=== PATIENT | female | born 1935 | race Caucasian/White ===

== ENCOUNTER 2020-08-26 12:03 | Inpatient (IN) | payer MEDICARE ==
[~2020-08-26] VITALS: Ht 165.1 cm; Wt 56.5 kg
--- NOTE | 2020-08-26 12:48 | NUR ---
PIV PLACED, LABS DRAWN AND COLLECTED BY ROUGH ROUNDER. XRAY AT BEDSIDE. SEIZURE PRECAUTIONS IN PLACE. FAMILY AT BEDSIDE.
[2020-08-26 12:55] LABS: BASOPHILS % (AUTO) 0 % (0-1); EOSINOPHILS % (AUTO) 0 % (1-7); LYMPHOCYTES % (AUTO) 5 % (22-44); MEAN CORPUSCULAR HEMOGLOBIN 31.9 pg (27.0-34.8); MEAN CORPUSCULAR HGB CONC 35.2 g/dL (32.4-35.8); MEAN PLATELET VOLUME 7.7 fL (7.4-10.4); MONOCYTES % (AUTO) 5 % (2-9); NEUTROPHILS % (AUTO) 90 % (42-75); PLATELET COUNT 293 x10^3/uL (130-400); RED BLOOD COUNT 3.88 x10^6/uL (3.82-5.3); RED CELL DISTRIBUTION WIDTH 14.1 % (9.6-15.2)
[2020-08-26 12:57] LABS: MD NO
[2020-08-26] MEDS ORDERED: SODIUM CHLORIDE FLUSH 10ML SYR IVF ONE (13:00)
[2020-08-26 13:06] LABS: ALANINE AMINOTRANSFERASE 22 U/L (12-78); ALBUMIN 4.1 g/dL (3.4-5.0); ANION GAP 10 mmol/L (5-15); CALCIUM 8.9 mg/dL (8.5-10.1); CHLORIDE 77 mmol/L (98-107); CREATININE 0.96 mg/dL (0.55-1.02)
[2020-08-26] MEDS ORDERED: LISI-170 PO (13:11)
[2020-08-26] MEDS ORDERED: ATOR20TA37 PO (13:11)
[2020-08-26] MEDS ORDERED: MIRT7.5T8 PO (13:11)
--- NOTE | 2020-08-26 13:14 | NUR ---
URINE COLLECTED VIA STRAIGHT CATH. UA COLLECTED AND TAKEN TO LAB.
[2020-08-26 13:16] LABS: ACETONE, SERUM Negative (Negative); ALKALINE PHOSPHATASE 52 U/L (45-117); BILIRUBIN,TOTAL 0.9 mg/dL (0.2-1.0); TOTAL PROTEIN 7.9 g/dL (6.4-8.2); TROPONIN I < 0.015 ng/mL (0.000-0.045)
[2020-08-26 13:34] LABS: MICROSCOPIC INDICATED
[2020-08-26] MEDS ORDERED: SODIUM CHLORIDE 3% 500 ML IV ONE ×2 (13:41→14:30)
--- NOTE | 2020-08-26 13:50 | NUR ---
PT GOING TO CT.
[2020-08-26] MEDS ORDERED: CEFTRIAXONE PMX 1GM/50ML 50 ML IV ONE (14:00)
[2020-08-26] MEDS ORDERED: SODIUM CHLORIDE FLUSH 10ML SYR IVF PRN (14:00)
[2020-08-26] MEDS ORDERED: POTASSIUM CHLORIDE 20 MEQ TAB.ER.PRT PO ONE (14:00)
--- NOTE | 2020-08-26 14:17 | NUR ---
3% NS REQUESTED FROM PHARMACY.
[2020-08-26] MEDS ORDERED: POTASSIUM CHLORIDE 20 MEQ TAB.ER.PRT ONE (14:24)
[2020-08-26] MEDS ORDERED: CEFTRIAXONE PMX 1GM/50ML 50 ML ONE (14:24)
--- NOTE | 2020-08-26 14:31 | NUR ---
MEDS ADMIN PER AUG. PT TOLERATED SWALLOWING POTASSIUM PILLS WELL.
--- NOTE | 2020-08-26 14:41 | NUR ---
REPORT GIVEN TO ORIN RN. PT RTG TO ROOM 551-2. PHARMACY NOTIFIED OF PT TRANSFER AND WILL SENT 3% NS TO FLOOR. ORIN AWARE OF MED ARRIVING TO FLOOR.
[2020-08-26] MEDS ORDERED: LORazepam 2 MG/ML, 1ML ONE (14:45)
[2020-08-26] MEDS: CEFTRIAXONE PMX 1GM/50ML 50 ML IV SCH (15:00)
[2020-08-26] MEDS ORDERED: ACETAMINOPHEN 325 MG TABLET PO PRN (15:00)
[2020-08-26] MEDS ORDERED: GUAIFENESIN/DM 200-20MG, 10ML UDC PO PRN (15:00)
[2020-08-26] MEDS ORDERED: ONDANSETRON 2MG/ML, 2ML IVPush PRN (15:00)
[2020-08-26] MEDS ORDERED: MELATONIN 5 MG TABLET PO PRN (15:00)
[2020-08-26] MEDS ORDERED: POTASSIUM PHOSPHATE 22 MEQ in SODIUM CHLORIDE 0.9% 500 ML IV ONE (15:00)
[2020-08-26] MEDS ORDERED: MAGNESIUM SULFATE PMX 2GM/50ML 50 ML IV ONE (15:00)
[2020-08-26] MEDS ORDERED: hydrALAzine 20 MG/ML, 1ML IVPush PRN (15:00)
[2020-08-26] MEDS ORDERED: DOCUSATE 100 MG CAPSULE PO PRN (15:00)
[2020-08-26] MEDS ORDERED: ALBUTEROL HFA 90 MCG/SPRAY INH PRN (15:00)
[2020-08-26] MEDS: SODIUM CHLORIDE 3% 500 ML IV PRN ×2 (15:40→15:42)
[2020-08-26 15:42] LABS: FREE T4 (FREE THYROXINE) 1.72 ng/dL (0.76-1.46)
[2020-08-26] MEDS: HEPARIN 5,000 UNITS/ML, 1ML SQ SCH (15:57)
[2020-08-26] MEDS: methylPREDNISolone SOD SUCC 40 MG/ML IV SCH (15:57)
[2020-08-26] MEDS ORDERED: POTASSIUM CHLORIDE 20 MEQ TAB.ER.PRT PO SCH (17:00)
[2020-08-26] MEDS ORDERED: K-PHOS NEUTRAL 250MG TAB PO SCH (21:00)
[2020-08-26] MEDS: MIRTAZAPINE 15 MG TABLET PO SCH (22:08)
[2020-08-26] MEDS: ATORVASTATIN 20 MG TABLET PO SCH (22:09)
[2020-08-27] MEDS: methylPREDNISolone SOD SUCC 40 MG/ML IV SCH ×3 (00:31→21:31)
[2020-08-27] MEDS: HEPARIN 5,000 UNITS/ML, 1ML SQ SCH ×3 (00:32→16:54)
[2020-08-27 04:06] LABS: MEAN CORPUSCULAR HEMOGLOBIN 31.8 pg (27.0-34.8); MEAN CORPUSCULAR HGB CONC 34.3 g/dL (32.4-35.8); MEAN PLATELET VOLUME 7.8 fL (7.4-10.4); PLATELET COUNT 275 x10^3/uL (130-400); RED BLOOD COUNT 3.56 x10^6/uL (3.82-5.3); RED CELL DISTRIBUTION WIDTH 13.9 % (9.6-15.2)
[2020-08-27 04:14] LABS: ANION GAP 9 mmol/L (5-15); CALCIUM 8.7 mg/dL (8.5-10.1); CHLORIDE 91 mmol/L (98-107); CREATININE 0.91 mg/dL (0.55-1.02)
[2020-08-27 04:29] LABS: MD YES
[2020-08-27 04:32] LABS: BAND#(MANUAL) 0.06 x10^3/uL; BANDS%(MANUAL) 1 % (0-7); EOS#(MANUAL) 0.06 x10^3/uL (0.0-0.4); EOS% (MANUAL) 1 % (1-7); LYMPH#(MANUAL) 0.34 x10^3/uL (1-3.4); LYMPHS% (MANUAL) 6 % (22-44); MONOS#(MANUAL) 0.06 x10^3/uL (0.3-2.7); MONOS% (MANUAL) 1 % (2-9); SEG#(MANUAL) 5.19 x10^3/uL (1.8-6.8); SEGS% (MANUAL) 91 % (42-75)
[2020-08-27 04:33] LABS: <PLATELET ESTIMATE> ADEQUATE; <PLT MORPHOLOGY> NORMAL PLT MORPH; <RBC MORPHOLOGY> NORMAL
[2020-08-27] MEDS: MULTIVITAMIN 1 TABLET PO SCH (08:46)
[2020-08-27] MEDS: FAMOTIDINE 20 MG/2 ML IVPush SCH (08:52)
[2020-08-27] MEDS ORDERED: LISINOPRIL 20 MG TABLET PO SCH (09:00)
[2020-08-27] MEDS: TIOTROPIUM BROMIDE 18 MCG/INH INH SCH (09:15)
[2020-08-27] MEDS: FLUTICASONE/VILANTEROL 100-25MCG/INH INH SCH (09:15)
[2020-08-27] MEDS: SODIUM CHLORIDE 1 GM TABLET PO SCH ×2 (09:46→21:32)
[2020-08-27 11:47] VITALS: BP 115/69
[2020-08-27 14:00] VITALS: BP 115/69
[2020-08-27 14:48] LABS: ANION GAP 8 mmol/L (5-15); CALCIUM 8.8 mg/dL (8.5-10.1); CHLORIDE 91 mmol/L (98-107); CREATININE 1.34 mg/dL (0.55-1.02)
[2020-08-27] MEDS ORDERED: SODIUM CHLORIDE 0.9%, 500ML IVBOLUS ONE (15:30)
[2020-08-27] MEDS: CEFTRIAXONE PMX 1GM/50ML 50 ML IV SCH (16:16)
[2020-08-27 17:49] VITALS: BP 95/59
[2020-08-27 19:37] VITALS: BP 109/64
[2020-08-27 21:27] VITALS: BP_SYST 113; BP_SYST 130; BP_DIAS 65; BP_DIAS 70
[2020-08-27 21:28] VITALS: BP 122/70
[2020-08-27] MEDS: ATORVASTATIN 20 MG TABLET PO SCH (21:32)
[2020-08-27] MEDS: MIRTAZAPINE 15 MG TABLET PO SCH (21:32)
[2020-08-28 00:38] VITALS: BP 149/77
[2020-08-28] MEDS: HEPARIN 5,000 UNITS/ML, 1ML SQ SCH ×3 (00:46→15:24)
[2020-08-28 07:48] VITALS: BP 127/68
[2020-08-28 08:29] LABS: ANION GAP 7 mmol/L (5-15); CALCIUM 8.7 mg/dL (8.5-10.1); CHLORIDE 96 mmol/L (98-107); CREATININE 0.97 mg/dL (0.55-1.02)
[2020-08-28] MEDS: FLUTICASONE/VILANTEROL 100-25MCG/INH INH SCH (08:55)
[2020-08-28] MEDS: TIOTROPIUM BROMIDE 18 MCG/INH INH SCH (08:55)
[2020-08-28] MEDS: MULTIVITAMIN 1 TABLET PO SCH (09:02)
[2020-08-28] MEDS: methylPREDNISolone SOD SUCC 40 MG/ML IV SCH ×2 (09:02→21:13)
[2020-08-28] MEDS: SODIUM CHLORIDE 1 GM TABLET PO SCH ×2 (09:02→21:13)
[2020-08-28] MEDS: FAMOTIDINE 20 MG/2 ML IVPush SCH (09:02)
[2020-08-28 12:08] VITALS: BP 115/65
[2020-08-28] MEDS: CEFTRIAXONE PMX 1GM/50ML 50 ML IV SCH (14:26)
[2020-08-28 20:13] VITALS: BP 127/68
[2020-08-28] MEDS ORDERED: TAMSULOSIN 0.4 MG CAP.ER.24H PO SCH (21:00)
[2020-08-28] MEDS: ATORVASTATIN 20 MG TABLET PO SCH (21:13)
[2020-08-28] MEDS: MIRTAZAPINE 15 MG TABLET PO SCH (21:13)
[2020-08-29] MEDS: HEPARIN 5,000 UNITS/ML, 1ML SQ SCH ×3 (00:08→16:00)
[2020-08-29 02:36] VITALS: BP 129/67
[2020-08-29 05:33] LABS: ANION GAP 7 mmol/L (5-15); CALCIUM 8.1 mg/dL (8.5-10.1); CHLORIDE 96 mmol/L (98-107); CREATININE 0.84 mg/dL (0.55-1.02)
[2020-08-29 07:38] VITALS: BP 109/61
[2020-08-29] MEDS: SODIUM CHLORIDE 1 GM TABLET PO SCH (07:43)
[2020-08-29] MEDS: MULTIVITAMIN 1 TABLET PO SCH (07:43)
[2020-08-29] MEDS: methylPREDNISolone SOD SUCC 40 MG/ML IV SCH (07:43)
[2020-08-29] MEDS ORDERED: FAMOTIDINE 20 MG TABLET PO SCH (09:00)
[2020-08-29] MEDS: FLUTICASONE/VILANTEROL 100-25MCG/INH INH SCH (09:00)
[2020-08-29] MEDS: TIOTROPIUM BROMIDE 18 MCG/INH INH SCH (09:00)
[2020-08-29] MEDS ORDERED: FLUT1AER INH (09:42)
[2020-08-29] MEDS ORDERED: TIOT18CA INH (09:42)
[2020-08-29] MEDS ORDERED: SODI1TAB PO (09:42)
[2020-08-29] MEDS ORDERED: ALBU18HF INH (09:42)
[2020-08-29] MEDS ORDERED: TAMS-11 PO (09:42)
[2020-08-29 14:16] VITALS: BP 105/53
[2020-08-29] MEDS: CEFTRIAXONE PMX 1GM/50ML 50 ML IV SCH (15:44)
== END 2020-08-29 17:06 | disposition home health service (06) | DRG 312 ==
LOC: ED 13:25 → EDIP 13:58 → CCU 15:04 → 3N 08-27 11:33
PROVIDERS: ADMIT Hospitalist; ATTEND Hospitalist
PROC: 0T9B70Z Drainage of Bladder with Drainage Device, Via Natural or Artificial Opening (ICD-10-PCS; principal; 2020-08-26)
DX: I95.1 Orthostatic hypotension (principal); E87.1 Hypo-osmolality and hyponatremia; N30.00 Acute cystitis without hematuria; J44.1 Chronic obstructive pulmonary disease with (acute) exacerbation; R56.9 Unspecified convulsions; Z66 Do not resuscitate; R33.9 Retention of urine, unspecified; F32.9 Major depressive disorder, single episode, unspecified; B96.1 Klebsiella pneumoniae [K. pneumoniae] as the cause of diseases classified elsewhere; E78.5 Hyperlipidemia, unspecified; E87.6 Hypokalemia; I10 Essential (primary) hypertension; R41.89 Other symptoms and signs involving cognitive functions and awareness; R09.02 Hypoxemia; Z87.891 Personal history of nicotine dependence
CPT/HCPCS: 36415; 70450; 71045; 80048; 80053; 81001; 82010; 82533; 83036; 83735; 83880; 84100; 84295; 84439; 84443; 84484; 85025; 87077; 87081; 87086; 87186; 93005; 94640; 95819; 99285; G0378; J0696; J1644; J2405; J2920; J3475; J7040

== ENCOUNTER 2020-09-06 07:34 | Day surgery (SDC) | payer MEDICARE ==
[~2020-09-06] VITALS: Ht 162.6 cm; Wt 54.8 kg
[~2020-09-06 07:34] MED LIST: ALBU18HF INH; ATOR20TA37 PO; FLUT1AER INH; LISI-170 PO; MIRT7.5T8 PO; SODI1TAB PO; TAMS-11 PO; TIOT18CA INH
[2020-09-06] MEDS ORDERED: LACTATED RINGERS 1,000 ML IV SCH (09:00)
[2020-09-06] MEDS ORDERED: CHLORHEXIDINE 15 ML UDC PO ONE (09:00)
[2020-09-06 09:22] VITALS: BP 193/79
[2020-09-06] MEDS ORDERED: SODI1TAB PO (09:39)
[2020-09-06] MEDS ORDERED: LOSA25TA25 PO (09:39)
[2020-09-06] MEDS ORDERED: BEMP1TAB PO (09:39)
[2020-09-06] MEDS ORDERED: FOLIC ACID PO (09:39)
[2020-09-06] MEDS ORDERED: CHOL10003 PO (09:39)
[2020-09-06] MEDS ORDERED: TIOT4MIS3 INH (09:39)
[2020-09-06] MEDS ORDERED: FENTANYL PF 250 MCG/5ML ONE (12:03)
[2020-09-06] MEDS ORDERED: PHENYLEPHRINE 10 MG/ML ONE (12:18)
[2020-09-06] MEDS ORDERED: DEXAMETHASONE 4 MG/ML, 1ML ONE (12:18)
[2020-09-06] MEDS ORDERED: hydrALAzine 20 MG/ML, 1ML IV PRN (12:30)
[2020-09-06] MEDS ORDERED: HALOPERIDOL 5 MG/ML IV PRN (12:30)
[2020-09-06] MEDS ORDERED: OXYcodone 5 MG/5 ML ORAL.SOL UDC PO PRN (12:30)
[2020-09-06] MEDS ORDERED: PROMETHAZINE 25 MG/ML, 1ML IVPush PRN (12:30)
[2020-09-06] MEDS ORDERED: morphine SULFATE 10 MG/ML, 1ML IVPush PRN (12:30)
[2020-09-06] MEDS ORDERED: ACETAMINOPHEN 325 MG TABLET PO PRN (12:30)
[2020-09-06] MEDS ORDERED: FENTANYL PF 100 MCG/2ML IV PRN (12:30)
[2020-09-06] MEDS ORDERED: LABETALOL 5MG/ML, 20ML IV PRN (12:30)
[2020-09-06] MEDS ORDERED: HYDROmorphone 1 MG/ML, 1ML INJ IVPush PRN (12:30)
[2020-09-06] MEDS ORDERED: BUPIVACAINE/PF-EPI 0.25% 1:200K INFIL ONE (12:43)
[2020-09-06] MEDS ORDERED: ONDANSETRON 2MG/ML, 2ML ONE (12:48)
[2020-09-06] MEDS ORDERED: CEFAZOLIN 1,000 MG ONE (12:48)
[2020-09-06] MEDS ORDERED: PROPOFOL 10 MG/ML, 20ML ONE (12:48)
[2020-09-06] MEDS ORDERED: TRAM-47 PO (13:08)
[2020-09-06] MEDS ORDERED: EPINEPHRINE 1 MG/ML, 1ML ONE (13:17)
[2020-09-06] MEDS ORDERED: BUPIVACAINE/PF 0.25% ONE (13:17)
== END 2020-09-06 15:00 | disposition home or self-care (01) ==
LOC: OUT 07:34
PROVIDERS: ATTEND Surgery
DX: L98.8 Other specified disorders of the skin and subcutaneous tissue (principal); C44.622 Squamous cell carcinoma of skin of right upper limb, including shoulder; I10 Essential (primary) hypertension; E78.5 Hyperlipidemia, unspecified; J44.9 Chronic obstructive pulmonary disease, unspecified; E87.1 Hypo-osmolality and hyponatremia; F03.90 Unspecified dementia, unspecified severity, without behavioral disturbance, psychotic disturbance, mood disturbance, and anxiety; Z20.822 Contact with and (suspected) exposure to COVID-19; Z79.899 Other long term (current) drug therapy
CPT/HCPCS: 14040; 87635; 88305; 93005; J0171; J0690; J1100; J2370; J2405; J2704; J3010; J7120